=== PATIENT | female | born 1970 | race Caucasian/White ===

== ENCOUNTER → 2018-05-25 | Outpatient (CLI) | payer BC, OTHER ==
--- NOTE | 2018-05-28 10:48 | RADIOLOGY IMAGING REPORT ---
FACILITY: [facility] PATIENT NAME: EDITH ROBERT : [id number] MR: [id number] V: [id number] EXAM DATE: [id number] ORDERING PHYSICIAN: SONIDO DENNIS TECHNOLOGIST: Tonie Solano PROCEDURE:BILATERAL DIGITAL SCREENING MAMMOGRAM WITH CAD ASSISTED INTERPRETATION & 3D TOMOSYNTHESIS COMPARISON:Prior mammogram 08/27/13. INDICATIONS:SCREENING FINDINGS: Scattered fibroglandular densities are present in both breasts. Several small benign appearing masses are scattered in both breasts. DIAGNOSTIC CATEGORY 1--NEGATIVE. RECOMMENDATIONS: ROUTINE MAMMOGRAM AND CLINICAL EVALUATION. IMPRESSION: BIRADS 1: Negative. Dictated by: Eliu Vidal M.D. on 05/25/2018 at 15:41 Transcribed by: VINAYAK on 05/28/2018 at 8:17 Approved by: Stephanie Donato M.D. on 05/28/2018 at 10:46 [facility]
== END ==
LOC: MAMO 02:31
PROVIDERS: ATTEND Family Medicine
DX: Z12.31 Encounter for screening mammogram for malignant neoplasm of breast (principal)
CPT/HCPCS: 77063; 77067